=== PATIENT | female | born 1990 | race African-American/Black ===

== ENCOUNTER 2016-09-07 00:33 | Emergency (ER) | payer BC ==
--- NOTE | 2016-09-15 07:32 | ER ---
ADMIT: 09/07/2016 RM/LOC: ER [facility] MR#: [id number] [address] [id number] ERIC HORNE [address] [place] [address] Emergency Room Report SEX: F AGE: 26 : 1990 DATE: 09/07/2016 ADDENDUM: A 26-year-old female who is G3, P1, AB2, presents complaining of cold symptoms that have been going on for about a day. 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 Other than sinus congestion, drainage, and dry mild cough, she has no other complaints at this time. On examination, her lung exam is completely normal. She did have some mild boggy mucosal edema. Otherwise, her physical exam was unremarkable. heart tones were 139. The patient was instructed she can use the Robitussin. She can also try using Benadryl, but the remainder of the medications I do not recommend taking with her . She is discharged home in stable condition. To follow up with Dr. Méndez as needed. Sina Simons MD/ eric JOB #: [id number] CC: Sina Simons MD, Attending Physician Hank Méndez MD, Family Physician
[2016-12-19] MEDS ORDERED: TYLENOL EXTRA500 M1 PO (08:36)
[2016-12-19] MEDS ORDERED: NIPPLECREAM TP (08:36)
[2016-12-19] MEDS ORDERED: PRENATAL VIT1 TAB PO (08:36)
[2016-12-19] MEDS ORDERED: DERMOPLAST SPRA56 GM TP (08:37)
[2016-12-19] MEDS ORDERED: MOTRIN-DPS800 MG PO (08:37)
== END 2016-09-07 01:17 | disposition home or self-care (01) ==
LOC: ER 00:33
DX: O98.511 Other viral diseases complicating pregnancy, first trimester (principal); B34.9 Viral infection, unspecified; Z3A.00 Weeks of gestation of pregnancy not specified

== ENCOUNTER 2016-11-27 15:45 | Outpatient (CLI) | payer BC ==
[2016-12-19] MEDS ORDERED: TYLENOL EXTRA500 M1 PO (08:36)
[2016-12-19] MEDS ORDERED: NIPPLECREAM TP (08:36)
[2016-12-19] MEDS ORDERED: PRENATAL VIT1 TAB PO (08:36)
[2016-12-19] MEDS ORDERED: MOTRIN-DPS800 MG PO (08:37)
[2016-12-19] MEDS ORDERED: DERMOPLAST SPRA56 GM TP (08:37)
== END 2016-11-27 16:50 | disposition home or self-care (01) ==
LOC: 2LDRP 15:45 → BC 15:45
DX: O99.89 Other specified diseases and conditions complicating pregnancy, childbirth and the puerperium (principal); R10.9 Unspecified abdominal pain; Z3A.38 38 weeks gestation of pregnancy